=== PATIENT | female | born 1985 | race Caucasian/White ===

== ENCOUNTER 2017-03-18 18:01 | Emergency (ER) | payer OTHER ==
[~2017-03-18 18:01] MED LIST: IBUPROFEN600 MG PO; NORCO1 TA1 PO; SERTRALINE HCL100 MG PO; XANAX XR1 MG PO
--- NOTE | 2017-03-18 18:50 | ED CLINICAL REPORT ---
Clinical Report - Physicians/Mid Levels [facility] [address] [place] [address] 03/18/2017 18:02 Patient: KARL HOANG Time Seen: 1835. Arrived- By private vehicle. Historian- patient. HISTORY OF PRESENT ILLNESS Chief Complaint: BOIL. This started past few days and is still present. It was gradual in onset and has been constant but is not gone now. It is described as painful. It has been located on the left buttock. A possible cause has been identified (MRSA. hx of MRSA). No recent medication, insect bite or food exposure. Was not recently exposed to poison magdaleno or poison oak. Similar symptoms previously: Once. Recent medical care: Not recently seen/assessed. REVIEW OF SYSTEMS No fever, chills, difficulty breathing, nausea or vomiting. All systems otherwise negative, except as recorded above. PAST HISTORY See nurses notes. Tetanus immunization status is up-to-date. SOCIAL HISTORY Never smoker. No alcohol use or drug use. No recent travel. Is a local resident. ADDITIONAL NOTES The nursing notes have been reviewed. PHYSICAL EXAM Vital Signs: 03/18/2017 18:18 BP: 123/70. HR: 96. RR: 16. O2 saturation: 100%. Temp: 98.4 F. Pain level now: 5/10. Blood pressure normal. Oxygen saturation normal. Appearance: Alert. Oriented X3. No acute distress. Eyes: Pupils equal, round and reactive to light. Conjunctivae and eyelids normal. ENT: Ears normal. Nose normal. Pharynx normal. CVS: Normal heart rate and rhythm. Heart sounds normal. Respiratory: No respiratory distress. Breath sounds normal. Chest nontender. Abdomen: Nontender. No organomegaly. Skin: (small area of induration which is 1 x 2 cm. small pustule which is approximately 2 mm in diameter. It was easy to scrape off with a 18-gauge needle and drained white purulent material. Surrounding area of cellulitis which measures approximately 2 x 3 cm. No signs of deeper infection. No crepitus. No abnormalities otherwise noted.). Extremities: Normal external inspection. Extremities nontender. Neuro: Oriented X 3. No motor deficit. No sensory deficit. (surgical wound to the midline lower back. Wound is clean dry and intact.). PROGRESS AND PROCEDURES Incision & Drainage of Abscess: The risks of the procedure, benefits and alternatives were explained. Skin cleansed with Betadine. A small amount of pus was drained. A dressing was applied. Estimated blood loss: < 2 mL. ( Pustule wasexcised with a 18-gauge needle. Small area ofpurulent material was removed from the small abscess. Patient tolerated procedure well. No pain medication required. No Complications. Patient tolerated well.). Course of Care: he patient is a pleasant 32-year-old female presenting for a vaginal abscess to the left buttocks. No signs of deeper infection. No signs of systemic involvement. Patient is extremely concerned because of recent back surgery. Was able to speak to Dr. Rossi who is agreeable to the treatment and plan of antibiotics and follow up in clinic. Wound to the back appears to be clean dry and intact. No signs of systemic involvement. No signs of sepsis. Patient is agreeable to the treatment and plan. Patient was able to tolerate bedside drainage of the abscess. patient is stable outpatient candidate. Head discussion with the patient regards to her workup here in the emergency department included diagnosis, home care, follow-up, and return precautions. All questions have been answered. The patient expressed understanding of these instructions and was agreeable to them. Disposition: Discharged. Condition: good. CLINICAL IMPRESSION 03/18/2017 18:18 BP: 123/70. HR: 96. RR: 16. O2 saturation: 100%. Temp: 98.4 F. Pain level now: 5/10. Blood pressure normal. Oxygen saturation normal. Cellulitis (left buttocks). Single superficial abscess with incision and drainage. INSTRUCTIONS Warnings: GENERAL WARNINGS: Return or contact your physician immediately if your condition worsens or changes unexpectedly, if not improving as expected, or if other problems arise. Specifically return if pain, vomiting, bleeding, breathing difficulty or fever. Your Current Medications: CONTINUE TAKING THE FOLLOWING MEDICATIONS: ALPRAZolam Oral : Tablet 1 mg, 1 tablet. Methocarbamol Oral : Tablet 750 mg, 1 tablet 4x a day. Sertraline HCl Oral : Tablet 100 mg, 2 tablets daily. Prescription Medications: Bactrim DS 800 mg / 160 mg: take 1 tablet orally every 12 hours for 10 days. No refill. Substitution is permissible. (disp 20 caps) Keflex 500 mg: take 1 capsule orally every 8 hours for 10 days. No refill. Substitution is permissible. (disp 30 caps) Follow-up: Return to the emergency department as needed. Follow up with your doctor. Call for an appointment. Reason for referral: recheck today's concerns. Summary of care provided to patient via paper. Screening today revealed the patient's blood pressure to be in the normal range. The patient should follow up with a primary care provider for blood pressure management. Understanding of the discharge instructions verbalized by patient. (Electronically signed by Ludwig Islas Dr. 03/25/2017 4:44)
--- NOTE | 2017-03-18 18:50 | ED ORDER SUMMARY ---
..... Patient: KARL HOANG OrderSheet [facility] VisitID: [id number] [place] [address] 32y, F Registration Date/Time: 03/18/2017 ORDER SHEET Weight: 104.3 kg (stated) Allergies: None GENERAL ORDERS: MEDICATION ORDERS: Motrin PO 600 mg (NOW) (18:46 03/18/2017 Codey Muñoz) (Cancelled: Duplicate Order18:55 Codey Muñoz) Keflex PO 500 mg (NOW) (18:47 03/18/2017 Codey Muñoz) (18:54 KKnebel R.N.) Bactrim DS PO (Tablet 800-160 mg) 1 tab (NOW) (18:47 03/18/2017 Codey Muñoz) (18:54 KKnemaximino R.N.) IV FLUIDS: ORDER SHEET NOTES: [Electronically signed by Yash Rosales R.N. (19:19 03/18/2017)] [Electronically signed by Ludwig Islas Dr. (04:44 03/25/2017)] [Electronically locked/signed by Yash Rosales R.N. (19:19 03/18/2017)]
--- NOTE | 2017-03-18 18:50 | ED NURSING NOTES ---
Clinical Report - Nurses [facility] [address] [place] [address] 03/18/2017 18:02 Patient: KARL HOANG TRIAGE Triage time 18:Mar 18 2017. Acuity: LEVEL 4. Chief Complaint: (abscess to left buttock). Alert. No acute distress. SEPSIS SCREEN: Sepsis Screen. Negative (no infection suspected/documented). [place] COMA SCORE: [place] Coma Scale: 15- eyes open spontaneously (4); best verbal response- oriented x 4 (5); best motor response- obeys commands (6). --18:27 Yuly Ugalde R.N. 18:18 03/18/17. BP: 123/70. HR: 96. RR: 16. O2 saturation: 100%. Temp: 98.4 F. Pain level now: 03/06. --18:27 Yuly Ugalde R.N. Weight: 104.3 kg stated. Height/Length: 68 inches Per Patient. BMI: 35. --18:24 Yuly Ugalde R.N. Medications Methocarbamol Oral (Tablet 750 mg) 1 tablet, 4x a day. --18:21 Yuly Ugalde R.N. Sertraline HCl Oral (Tablet 100 mg) 2 tablets, daily. --18:21 Yuly Ugalde R.N. ALPRAZolam Oral (Tablet 1 mg) 1 tablet. --18:22 Yuly Ugalde R.N. Allergies None. --18:22 Yuly Ugalde R.N. History Arrived by private vehicle. Historian: patient. Accompanied by family. Onset. (about 2 days). ( pt states that she had MRSA in abscess prior to back surgery. She had back surgery on the and now she has another abscess. Her Neurosurgeon wants her to have it taken care of since she has a surgical incision on her back still.). No fever. Treatment DEVELOPMENT TECHNICAL LEAD: None. PAST MEDICAL HX: Immunizations: up-to-date. Last normal menstrual period- Mar 02 2017. Denies current . SOCIAL HX: Never smoker. No alcohol use or drug use. No infectious disease exposure. SELF HARM ASSESSMENT: A self harm assessment was performed. The patient answered "no" to the question "Do you have thoughts of harming or killing yourself?". FALL RISK ASSESSMENT: Fall risk assessment completed. No fall risk identified. NUTRITIONAL RISK ASSESSMENT: The nutritional risk assessment revealed no deficiencies. FUNCTIONAL ASSESSMENT: Functional assessment: no impairments noted. LEARNING NEEDS ASSESSMENT: The learning needs assessment revealed no barriers. ABUSE ASSESSMENT: Abuse assessment: The patient was asked "Do you feel safe in your home?". SKIN INTEGRITY ASSESSMENT: Skin integrity risk assessment completed. No skin integrity risk identified. --18:27 Yuly Ugalde R.N. PROBLEMS: Vomiting. Diarrhea. . Herniated Disk. URI. Bronchitis. Immunizations. LNMP - Last Normal Menstrual Period. Allergic Rhinitis. Depression. Anxiety Reaction. --18:23 Yuly Ugalde R.N. ADDITIONAL SURGERIES: Back Surgery. --18:23 Yuly Ugalde R.N. Interventions ID band on patient. To room. --18:27 Yuly Ugalde R.N. PHYSICAL ASSESSMENT GENERAL / NEURO / PSYCH: Alert. Oriented X 4. Appears in no acute distress. HEENT: No facial asymmetry noted. Mucous membranes are pink. RESPIRATORY: Respirations not labored. Chest nontender. CVS: Capillary refill less than 2 seconds. Pulses within normal limits. GI / : Abdomen soft and nontender. SKIN: Skin is warm and dry. --18:28 Yuly Ugalde R.N. NURSING PROGRESS NOTES Patient gowned. Patient identifiers checked. Call light placed in reach. Bed placed in lowest position. Brakes of bed on. --18:29 Yuly Ugalde R.N. 18:54 03/18/2017 Keflex (Cephalexin) PO Tablets 500 mg given. Allergies verified and confirmed 5 rights. --18:54 Yuly Ugalde R.N. 18:54 03/18/2017 Bactrim DS (Sulfamethoxazole-TMP DS) PO 1 tab given. Allergies verified and confirmed 5 rights. --18:54 Yluy Ugalde R.N. DISPOSITION / DISCHARGE 19:19 03/18/17. Condition at departure: improved. The goals identified in the patient's plan of care were met. ( Pt will follow up tomorrow for wound check with PCP). No learning barriers present. Discharge instructions provided and reviewed with the patient. Reviewed warnings. Reviewed medication(s). Treatments reviewed. Patient verbalized understanding. Written instructions provided in Telugu. The patient was discharged by the physician. She was discharged home and accompanied by family. She left the Emergency Department ambulatory and via private vehicle. Family member driving. FALL RISK ASSESSMENT: Fall risk assessment completed. No fall risk identified. --19:19 Yash Rosales R.N. 19:18 03/18/17. BP: 115/71. HR: 81. RR: 15. O2 saturation: 99%. Temp: 98.2 F (oral). --19:19 Yash Rosales R.N. 19:19 03/18/17. Departure time: 19:19. --19:19 Yash Rosales R.N. Locked/Released at 03/18/2017 19:20 by Yash Rosales R.N.
--- NOTE | 2017-03-18 18:50 | ED ORDER SUMMARY ---
..... Patient: KARL HOANG OrderSheet [facility] VisitID: [id number] [place] [address] 32y, F Registration Date/Time: 03/18/2017 ORDER SHEET Weight: 104.3 kg (stated) Allergies: None GENERAL ORDERS: MEDICATION ORDERS: Motrin PO 600 mg (NOW) (18:46 03/18/2017 Codey Muñoz) (Cancelled: Duplicate Order18:55 Codey Muñoz) Keflex PO 500 mg (NOW) (18:47 03/18/2017 Codey Muñoz) (18:54 KKnebel R.N.) Bactrim DS PO (Tablet 800-160 mg) 1 tab (NOW) (18:47 03/18/2017 Codey Muñoz) (18:54 KKnemaximino R.N.) IV FLUIDS: ORDER SHEET NOTES: [Electronically signed by Yash Rosales R.N. (19:19 03/18/2017)] [Electronically signed by Ludwig Islas Dr. (04:44 03/25/2017)] [Electronically locked/signed by Yash Rosales R.N. (19:19 03/18/2017)]
--- NOTE | 2017-03-25 04:45 | ED MED RECONCILIATION SUMMARY ---
Patient: KARL HOANG Medication Reconciliation Report [facility] VisitID: [id number] [place] [address] 32y, F Registration Date/Time: 03/18/2017 Weight: 104.3 kg Height/Length: 68 in. BMI: 35.0 ALLERGIES: None The patient's Home Medications are listed below: CONTINUE TAKING THE FOLLOWING MEDICATIONS: ALPRAZolam Oral (1 mg) 1 tablet Methocarbamol Oral (750 mg) 1 tablet, 4x a day Sertraline HCl Oral (100 mg) 2 tablets, daily The source(s) of the original Home Medication information: Not obtained. The following Medications were given to the patient in the Emergency Department: Keflex [PO] PO 500 mg, administered: 03/18/2017 6:54:00 PM Bactrim DS [PO] PO 1 tab, administered: 03/18/2017 6:54:00 PM The following Medications were prescribed to the patient: Bactrim DS 800 mg / 160 mg: take 1 tablet orally every 12 hours for 10 days. No refill. Substitution is permissible.(disp 20 caps) -- Ludwig Islas Dr. Keflex 500 mg: take 1 capsule orally every 8 hours for 10 days. No refill. Substitution is permissible.(disp 30 caps) -- Ludwig Islas Dr.
--- NOTE | 2017-03-25 04:45 | ED DISCHARGE INSTRUCTIONS ---
Patient: KARL HOANG General Instructions [facility] VisitID: [id number] [place] [address] 32y, F Registration Date/Time: 03/18/2017 03/18/2017 18:18 BP: 123/70. HR: 96. RR: 16. O2 saturation: 100%. Temp: 98.4 F. Pain level now: 5/10. Blood pressure normal. Oxygen saturation normal. Cellulitis (left buttocks). Single superficial abscess with incision and drainage. INSTRUCTIONS Warnings: GENERAL WARNINGS: Return or contact your physician immediately if your condition worsens or changes unexpectedly, if not improving as expected, or if other problems arise. Specifically return if pain, vomiting, bleeding, breathing difficulty or fever. Your Current Medications: CONTINUE TAKING THE FOLLOWING MEDICATIONS: ALPRAZolam Oral : Tablet 1 mg, 1 tablet. Methocarbamol Oral : Tablet 750 mg, 1 tablet 4x a day. Sertraline HCl Oral : Tablet 100 mg, 2 tablets daily. Prescription Medications: Bactrim DS 800 mg / 160 mg: take 1 tablet orally every 12 hours for 10 days. No refill. Substitution is permissible. (disp 20 caps) Keflex 500 mg: take 1 capsule orally every 8 hours for 10 days. No refill. Substitution is permissible. (disp 30 caps) Follow-up: Return to the emergency department as needed. Follow up with your doctor. Call for an appointment. Reason for referral: recheck today's concerns. Summary of care provided to patient via paper. Screening today revealed the patient's blood pressure to be in the normal range. The patient should follow up with a primary care provider for blood pressure management. Understanding of the discharge instructions verbalized by patient. ADDITIONAL INFORMATION Cellulitis You have an infection of the skin known as cellulitis. This usually starts with a scrape, cut, insect bite, blister or other opening in the skin which becomes infected. This is a serious condition. It must be watched closely to be sure the infection is not spreading. With antibiotic treatment, the size of the red area will gradually shrink in size until the skin returns to normal. This will take 7-10 days. The red area should never increase in size once the antibiotic medicine has been started. Occasionally, an infection will be resistant to one antibiotic and another one will have to be used. Home Care: 1) Limit the use of the affected part, since excess movement can cause the infection to spread. 2) If the infection is on your leg, walk as little as possible during the first few days of the treatment. Keep your leg elevated while sitting. This will reduce swelling. 3) Take all of the antibiotic medicine exactly as directed until it is gone. Be careful not to miss any doses, especially during the first seven days. Follow Up with your doctor or this facility as directed. Check the infected area daily for the warning signs listed below. Get Prompt Medical Attention if any of the following occur: -- Spreading area of redness -- Increasing swelling or pain -- Appearance of pus or drainage -- Fever over 100.4 F (38.0 C) oral, or over 101.4 F (38.6 C) rectal, after two days on antibiotics Staph Infection (MRSA) "Staph" is the short name for the common bacteria called "staphylococcus aureus". Staph bacteria are often present on the skin without causing an infection. If it gets under the skin an infection occurs. This causes redness, tenderness, swelling and sometimes fluid drainage. MRSA stands for "Methicillin-Resistant Staph Aureus". Unlike a common staph infection, MRSA bacteria are resistant to the usual antibiotics and harder to treat. Also, MRSA is more toxic than common staph bacteria. It can spread quickly throughout the body and cause a life-threatening illness. MRSA is spread to others by direct physical contact with the bacteria. MRSA can also be transmitted from items contaminated by a person who has the bacteria, such as bandages, towels, bed sheets, or sports equipment. It is not spread through the air. Once you have a MRSA skin infection, you are at risk of having it recur in the future. If MRSA infection is suspected, the doctor may take a wound culture to confirm the diagnosis. Any abscess will be drained. One or sometimes two antibiotics that work against MRSA will be prescribed. Home Care: 1) Take any antibiotics prescribed exactly as directed until they are gone. 2) Follow the same washing procedures as outlined for Household Members below. 3) Keep draining wounds covered with clean, dry bandages. Change dressings as they become soiled. 4) You and those in contact with you should wash their hands frequently with soap and warm water or use an alcohol-based hand circulation tender. Do this after each time you change the bandage or touch the wound. 5) Avoid sharing personal items such as towels, washcloths, razors, clothing, or uniforms. Wash soiled sheets, towels or clothes in hot water with laundry detergent. Use an automatic clothes dryer set on high to kill any remaining bacteria. 6) Remove any artificial nails and nail kazakh. 7) If you use a gym, wipe down equipment before and after each use. Treatment Of Household Members If you have been diagnosed with possible MRSA infection, those living with you are at higher risk of carrying the bacteria on their skin or in their nose, even if there is no sign of infection. Bacteria must be removed from the skin of all household members (including you) at the same time, so that it is not passed back and forth. Advise them to remove the bacteria as follows: Wash your whole body (scalp to toes) daily for five days with Hibiclens (chlorhexidine). Scrub fingernails with a brush for one minute twice a day. If any skin infections are present (boils, abscess, infected cut) these must be treated by a doctor. Washing alone will not treat a MRSA infection. Clean counter tops and children's toys; do not share personal items such as toothbrush and razors. It is okay to share glasses, plates, utensils. If antibiotic ointment was prescribed use it as directed. Follow Up with your doctor or as advised by our staff. If a wound culture was taken, call as directed in two days to obtain the results. If the culture result is positive for MRSA, tell medical personnel in the future that you were treated for this type of infection. Get Prompt Medical Attention if any of the following occur: -- Increasing redness, swelling or pain -- Red streaks in the skin around the wound -- Weakness or dizziness -- New appearance of pus or drainage from the wound -- New fever over 100.4 F (38.0 C) Abscess [Incision & Drainage] An abscess (sometimes called a boil) occurs when bacteria get trapped under the skin and begin to grow. Pus forms inside the abscess as the body responds to the bacteria. An abscess can occur with an insect bite, ingrown hair, blocked oil gland, pimple, cyst, or puncture wound. Treatment of your abscess has required an incision to drain the pus. If the abscess pocket was large, a gauze packing may have been inserted. This will need to be removed and possibly replaced on your next visit. Antibiotics are not required in the treatment of a simple abscess, unless the infection is spreading into the skin around the wound (known as cellulitis). Healing of the wound will take about one to two weeks depending on the size of the abscess. Healthy tissue will grow from the bottom and sides of the opening until it seals over. Home Care: The wound may drain for the first two days. Cover the wound with a clean dry dressing. If the dressing becomes soaked with blood or pus, change it. If a gauze packing was placed inside the abscess cavity, you may be advised to remove it yourself. You may do this in the shower. Once the packing is removed, you should wash the area in the shower or bath 3 to 4 times a day, until the skin opening has closed. If you were prescribed antibiotics, take them as directed until they are all gone. You may use acetaminophen (Tylenol) or ibuprofen (Motrin, Advil) to control pain, unless another pain medicine was prescribed. [ NOTE: If you have liver disease or ever had a stomach ulcer, talk with your doctor before using these medicines.] Follow Up with your doctor as advised by our staff. If a gauze packing was inserted in your wound, it should be removed in 1-2 days. Check your wound every day for the signs of worsening infection listed below. Get Prompt Medical Attention if any of the following occur: Increasing redness or swelling Red streaks in the skin leading away from the wound Increasing local pain or swelling Continued pus draining from the wound two days after treatment Fever of 100.4F (38C) or higher, or as directed by your healthcare provider Sulfamethoxazole, Trimethoprim Oral tablet What is this medicine? SULFAMETHOXAZOLE; TRIMETHOPRIM or SMX-TMP (suhl fuh meth OK denton zohl; trye METH oh prim) is a combination of a sulfonamide antibiotic and a second antibiotic, trimethoprim. It is used to treat or prevent certain kinds of bacterial infections. It will not work for colds, flu, or other viral infections. How should I use this medicine? Take this medicine by mouth with a full glass of water. Follow the directions on the prescription label. Take your medicine at regular intervals. Do not take it more often than directed. Do not skip doses or stop your medicine early. Talk to your traffic personnel supervisor regarding the use of this medicine in children. Special care may be needed. This medicine has been used in children as young as 2 months of age. What side effects may I notice from receiving this medicine? Side effects that you should report to your doctor or health residential care officer as soon as possible: allergic reactions like skin rash or hives, swelling of the face, lips, or tongue breathing problems fever or chills, sore throat irregular heartbeat, chest pain joint or muscle pain pain or difficulty passing urine red pinpoint spots on skin redness, blistering, peeling or loosening of the skin, including inside the mouth unusual bleeding or bruising unusually weak or tired yellowing of the eyes or skin Side effects that usually do not require medical attention (report to your doctor or health residential care officer if they continue or are bothersome): diarrhea dizziness headache loss of appetite nausea, vomiting nervousness What may interact with this medicine? Do not take this medicine with any of the following medications: aminobenzoate potassium dofetilide metronidazole This medicine may also interact with the following medications: BETO inhibitors like benazepril, enalapril, lisinopril, and ramipril cyclosporine digoxin diuretics indomethacin medicines for diabetes methenamine methotrexate phenytoin potassium supplements pyrimethamine sulfinpyrazone tricyclic antidepressants warfarin What if I miss a dose? If you miss a dose, take it as soon as you can. If it is almost time for your next dose, take only that dose. Do not take double or extra doses. Where should I keep my medicine? Keep out of the reach of children. Store at room temperature between 20 to 25 degrees C (68 to 77 degrees F). Protect from light. Throw away any unused medicine after the expiration date. What should I tell my health care provider before I take this medicine? They need to know if you have any of these conditions: anemia asthma being treated with anticonvulsants if you frequently drink alcohol containing drinks kidney disease liver disease low level of folic acid or [id number] dehydrogenase poor nutrition or malabsorption porphyria severe allergies thyroid disorder an unusual or allergic reaction to sulfamethoxazole, trimethoprim, sulfa drugs, other medicines, foods, dyes, or preservatives or trying to get breast-feeding What should I watch for while using this medicine? Tell your doctor or health residential care officer if your symptoms do not improve. Drink several glasses of water a day to reduce the risk of kidney problems. Do not treat diarrhea with over the counter products. Contact your doctor if you have diarrhea that lasts more than 2 days or if it is severe and watery. This medicine can make you more sensitive to the sun. Keep out of the sun. If you cannot avoid being in the sun, wear protective clothing and use a sunscreen. Do not use sun lamps or tanning beds/booths. Cephalexin Monohydrate Oral tablet What is this medicine? CEPHALEXIN (sef a TRUNG in) is a cephalosporin antibiotic. It is used to treat certain kinds of bacterial infections It will not work for colds, flu, or other viral infections. How should I use this medicine? Take this medicine by mouth with a full glass of water. Follow the directions on the prescription label. This medicine can be taken with or without food. Take your medicine at regular intervals. Do not take your medicine more often than directed. Take all of your medicine as directed even if you think you are better. Do not skip doses or stop your medicine early. Talk to your traffic personnel supervisor regarding the use of this medicine in children. While this drug may be prescribed for selected conditions, precautions do apply. What side effects may I notice from receiving this medicine? Side effects that you should report to your doctor or health residential care officer as soon as possible: allergic reactions like skin rash, itching or hives, swelling of the face, lips, or tongue breathing problems pain or trouble passing urine redness, blistering, peeling or loosening of the skin, including inside the mouth severe or watery diarrhea unusually weak or tired yellowing of the eyes, skin Side effects that usually do not require medical attention (report to your doctor or health residential care officer if they continue or are bothersome): gas or heartburn genital or anal irritation headache joint or muscle pain nausea, vomiting What may interact with this medicine? probenecid some other antibiotics What if I miss a dose? If you miss a dose, take it as soon as you can. If it is almost time for your next dose, take only that dose. Do not take double or extra doses. There should be at least 4 to 6 hours between doses. Where should I keep my medicine? Keep out of the reach of children. Store at room temperature between 59 and 86 degrees F (15 and 30 degrees C). Throw away any unused medicine after the expiration date. What should I tell my health care provider before I take this medicine? They need to know if you have any of these conditions: kidney disease stomach or intestine problems, especially colitis an unusual or allergic reaction to cephalexin, other cephalosporins, penicillins, other antibiotics, medicines, foods, dyes or preservatives or trying to get breast-feeding What should I watch for while using this medicine? Tell your doctor or health residential care officer if your symptoms do not begin to improve in a few days. Do not treat diarrhea with over the counter products. Contact your doctor if you have diarrhea that lasts more than 2 days or if it is severe and watery. If you have diabetes, you may get a false-positive result for sugar in your urine. Check with your doctor or health residential care officer. You have been given the following additional information: Cellulitis MRSA Skin Infection, Suspected Or Confirmed Abscess, Incision And Drainage Sulfamethoxazole, Trimethoprim Oral tablet Cephalexin Monohydrate Oral tablet (Electronically signed by Ludwig Islas Dr. 03/25/2017 4:44)
--- NOTE | 2017-03-25 04:45 | ED MAR SUMMARY ---
..... Medication Administration Record [facility] [address] [place] [address] Patient: KARL HOANG Visit ID: [id number] 32y, F Weight: 104.3 kg Height/Length: 68 in BMI: 35 ALLERGIES: None Given 18:54 03/18/2017 Yuly Ugalde RBartolomeNBartolome Medication Administered: KEFLEX [PO] (CEPHALEXIN), Dose: 500 mg Tablets PO. Medication Ordered: Keflex PO 500 mg (NOW). Given 18:54 03/18/2017 Yuly Ugalde, RBartolomeNBartolome Medication Administered: BACTRIM DS [PO] (SULFAMETHOXAZOLE-TMP DS), Dose: 1 tab PO. Medication Ordered: Bactrim DS PO (Tablet 800-160 mg) 1 tab (NOW).
--- NOTE | 2017-03-25 04:45 | ED MAR SUMMARY ---
..... Medication Administration Record [facility] [address] [place] [address] Patient: KARL HOANG Visit ID: [id number] 32y, F Weight: 104.3 kg Height/Length: 68 in BMI: 35 ALLERGIES: None Given 18:54 03/18/2017 Yuly Ugalde RBartolomeNBartolome Medication Administered: KEFLEX [PO] (CEPHALEXIN), Dose: 500 mg Tablets PO. Medication Ordered: Keflex PO 500 mg (NOW). Given 18:54 03/18/2017 Yuly Ugalde, RBartolomeNBartolome Medication Administered: BACTRIM DS [PO] (SULFAMETHOXAZOLE-TMP DS), Dose: 1 tab PO. Medication Ordered: Bactrim DS PO (Tablet 800-160 mg) 1 tab (NOW).
--- NOTE | 2017-03-25 04:45 | ED MED RECONCILIATION SUMMARY ---
Patient: KARL HOANG Medication Reconciliation Report [facility] VisitID: [id number] [place] [address] 32y, F Registration Date/Time: 03/18/2017 Weight: 104.3 kg Height/Length: 68 in. BMI: 35.0 ALLERGIES: None The patient's Home Medications are listed below: CONTINUE TAKING THE FOLLOWING MEDICATIONS: ALPRAZolam Oral (1 mg) 1 tablet Methocarbamol Oral (750 mg) 1 tablet, 4x a day Sertraline HCl Oral (100 mg) 2 tablets, daily The source(s) of the original Home Medication information: Not obtained. The following Medications were given to the patient in the Emergency Department: Keflex [PO] PO 500 mg, administered: 03/18/2017 6:54:00 PM Bactrim DS [PO] PO 1 tab, administered: 03/18/2017 6:54:00 PM The following Medications were prescribed to the patient: Bactrim DS 800 mg / 160 mg: take 1 tablet orally every 12 hours for 10 days. No refill. Substitution is permissible.(disp 20 caps) -- Ludwig Islas Dr. Keflex 500 mg: take 1 capsule orally every 8 hours for 10 days. No refill. Substitution is permissible.(disp 30 caps) -- Ludwig Islas Dr.
== END 2017-03-18 19:19 | disposition home or self-care (01) ==
LOC: ED SRH 18:01
DX: L03.317 Cellulitis of buttock (principal); Z86.14 Personal history of Methicillin resistant Staphylococcus aureus infection; Z98.890 Other specified postprocedural states